=== PATIENT | female | born 1955 | race Two or more races ===

== ENCOUNTER 2024-04-17 16:02 | Inpatient (IN) | payer OTHER, BC ==
[~2024-04-17] VITALS: Ht 160 cm; Wt 63.5 kg
[~2024-04-17 16:02] MED LIST: AMARANTH100 GM; PREVACID15 MG; SKELAXIN800 MG PO; ULTRACET PO
[2024-04-17] MEDS ORDERED: FELODIPINE ER2.5 MG PO (16:51)
[2024-04-17 17:50] LABS: MEAN CORPUSCULAR HGB CONC 31.6 g/dl (32.0-36.0); PLATELET COUNT 459 K/uL (150-450); RED BLOOD COUNT 3.31 M/uL (4.00-6.00); RED CELL DISTRIBUTION WIDTH 17.2 % (11.5-14.5)
[2024-04-17 17:56] LABS: MEAN CORPUSCULAR HEMOGLOBIN 21.7 pg (27.00-32.0)
[2024-04-17 17:58] LABS: HEMATOCRIT 22.9 % (36.0-45.00); HEMOGLOBIN 7.2 g/dL (12.0-15.00)
[2024-04-17] MEDS ORDERED: LEVALBUTEROL HCL 1.25 MG/3 ML SOLUTION IH SCH (19:15)
[2024-04-17] MEDS ORDERED: LEVALBUTEROL HCL 1.25 MG/3 ML SOLUTION IH ONE (20:56)
[2024-04-17] MEDS ORDERED: AZITHROMYCIN 500 MG VIAL IV SCH (22:24)
[2024-04-17] MEDS ORDERED: 0.9 % SODIUM CHLORIDE 1,000 ML IV SCH (22:30)
[2024-04-17] MEDS ORDERED: INSULIN LISPRO 1,000 UNIT/10 ML UNITS SUBCUTANEO PRN (22:30)
[2024-04-17] MEDS ORDERED: FUROsemide 20 MG/2 ML VIAL IV SCH (22:30)
[2024-04-17] MEDS ORDERED: DEXTROSE 50 % IN WATER 0.5 G/ML DISP.SYRIN IV PRN (22:30)
[2024-04-17] MEDS ORDERED: DIPHENHYDRAMINE HCL 50 MG/ML VIAL 1ML IV PRN (22:30)
[2024-04-17] MEDS ORDERED: MONTELUKAST SODIUM 10 MG TABLET PO SCH (22:32)
[2024-04-17] MEDS ORDERED: hydrALAZINE HCL 20 MG VIAL IV PRN (22:45)
[2024-04-17] MEDS ORDERED: ONDANSETRON HCL 4 MG in 0.9 % SODIUM CHLORIDE 50 ML IV PRN (22:45)
[2024-04-17] MEDS ORDERED: BENZONATATE 100 MG CAPSULE PO PRN (22:45)
[2024-04-17] MEDS ORDERED: ACETAMINOPHEN 500 MG GEL..CAP PO PRN (22:45)
[2024-04-18] MEDS ORDERED: LEVALBUTEROL HCL 1.25 MG/3 ML SOLUTION IH SCH (01:00)
[2024-04-18] MEDS ORDERED: IPRATROPIUM BROMIDE 0.5 MG/2.5 ML AMPUL.NEB IH SCH (01:00)
[2024-04-18] MEDS ORDERED: ACETAMINOPHEN 500 MG GEL..CAP PO ONE (02:54)
[2024-04-18] MEDS ORDERED: LEVALBUTEROL HCL 1.25 MG/3 ML SOLUTION IH ONE (08:23)
[2024-04-18] MEDS ORDERED: IPRATROPIUM BROMIDE 0.5 MG/2.5 ML AMPUL.NEB IH ONE (08:23)
[2024-04-18 08:50] VITALS: BP 146/64; O2SAT 98
[2024-04-18] MEDS ORDERED: INSULIN LISPRO 1,000 UNIT/10 ML UNITS SUBCUTANEO ONE (08:50)
[2024-04-18] MEDS ORDERED: CETIRIZINE HCL 5 MG/5 ML ML PO SCH (09:00)
[2024-04-18] MEDS ORDERED: PATIENTS OWN MEDICATION (MEDICAMENTO EN PISO) PO SCH (09:00)
[2024-04-18] MEDS ORDERED: PANTOPRAZOLE SODIUM 40 MG in 0.9 % SODIUM CHLORIDE 8 ML IV PUSH SCH (09:00)
[2024-04-18 09:13] LABS: URINE APPEARANCE Error; URINE BILIRRUBIN Negative (NEGATIVE); URINE BLOOD Negative; URINE COLOR Yellow; URINE GLUCOSE Negative (NEGATIVE); URINE KETONE Negative (NEGATIVE); URINE LEUKOCYTE Negative; URINE NITRATE Negative; URINE PROTEIN Negative (NEGATIVE); URINE UROBILINOGEN 0.2 E.U./dl
[2024-04-18 09:37] LABS: PLATELET COUNT 477 K/uL (150-450); RED BLOOD COUNT 3.53 M/uL (4.00-6.00); RED CELL DISTRIBUTION WIDTH 17.1 % (11.5-14.5)
[2024-04-18 09:39] LABS: HEMATOCRIT 23.9 % (36.0-45.00); MEAN CELL VOLUME 67.8 fL (80.00-100.00); MEAN CORPUSCULAR HEMOGLOBIN 21.8 pg (27.00-32.0)
[2024-04-18 09:45] LABS: HEMOGLOBIN 7.7 g/dL (12.0-15.00); LDH 195 U/L (84-246); PHOSPHOKINASE CREATININE 57 U/L (26-192)
[2024-04-18 09:47] LABS: ALBUMIN 3.3 gm/dL (3.4-5.0); BILIRUBIN TOTAL 0.27 mg/dL (0.3-1.2); CALCIUM 8.9 mg/dL (8.5-10.1); CHOL HDL RATIO 2.8 (0-5.0); CREATININE SERUM 0.72 mg/dL (0.55-1.02); GFR 80.79; GLOBULINA 3.6 G/DL (2.4-3.5); MAGNESIUM 1.8 mg/dL (1.8-2.4); POTASSIUM 4.26 mEq/L (3.5-5.1); TOTAL PROTEIN 6.9 gm/dL (6.4-8.2)
[2024-04-18 09:53] LABS: C-REACTIVE PROTEIN 2.3 MG/DL (0.00-0.29)
[2024-04-18 09:54] LABS: ERYTHROCYTE SEDIMENTATION RATE 81 mm/hr
[2024-04-18 09:58] LABS: URINE BACTERIA 1.2 uL (0.0-1933); URINE EPITHELIAL CELLS 0.7 uL (0.0-38.8); URINE RBC 0.4 uL (0.0-20.8); URINE WBC 0 uL (0.0-23.2)
[2024-04-18] MEDS ORDERED: DIPHENHYDRAMINE HCL 50 MG/ML VIAL 1ML IV SCH (10:30)
[2024-04-18 10:56] LABS: INR 1.09; PARTIAL THROMBOPLASTIN TIME 23.6 SECONDS (22.0-34.0); PROTHROMBIN TIME 11.8 SECONDS (9.0-11.5)
[2024-04-18 11:19] LABS: ABG PH 7.465 (7.35-7.45); ABG PO2 94.8 mmHg (80-100); ABG pCO2 30.3 mmHg (35-45)
[2024-04-18 11:20] LABS: BASE EXCESS -1.3 mmol/l; BICARBONATE 21.3 mmol/l (23-25); SaO2 97.8 %; Tco2 22.2 mmol/l; allen test SATISFACTORY; o2 21 %; puncture site RADIAL RIGHT
[2024-04-18 14:05] VITALS: O2SAT 100
[2024-04-18] MEDS ORDERED: INSULIN LISPRO 1,000 UNIT/10 ML UNITS SUBCUTANEO PRN (16:00)
[2024-04-18 16:15] VITALS: O2SAT 99
[2024-04-18 16:43] VITALS: BP 145/69; O2SAT 100
[2024-04-18 19:22] VITALS: O2SAT 97
[2024-04-18] MEDS ORDERED: INSULIN GLARGINE,HUM.REC.ANLOG 1,000 UNITS/10 ML UNITS SUBCUTANEO SCH (21:00)
[2024-04-19] VITALS (8 sets, daily range): BP systolic 106–140; BP diastolic 49–63; O2SAT 97–100
[2024-04-19] MEDS ORDERED: AZITHROMYCIN 500 MG VIAL IV ONE (07:55)
[2024-04-19] MEDS ORDERED: levoFLOXacin IN DEXTROSE 5 % 150 ML IV SCH (09:00)
[2024-04-19 12:23] LABS: MEAN CORPUSCULAR HGB CONC 31.9 g/dl (32.0-36.0); PLATELET COUNT 412 K/uL (150-450); RED BLOOD COUNT 3.18 M/uL (4.00-6.00); RED CELL DISTRIBUTION WIDTH 17.1 % (11.5-14.5)
[2024-04-19 12:29] LABS: MEAN CELL VOLUME 68.7 fL (80.00-100.00)
[2024-04-19 12:31] LABS: HEMATOCRIT 21.8 % (36.0-45.00)
[2024-04-19 12:34] LABS: ob POSITIVE (NEGATIVE)
[2024-04-19 12:44] LABS: CALCIUM 8.4 mg/dL (8.5-10.1); CREATININE SERUM 0.72 mg/dL (0.55-1.02); GFR 80.79; LDH 182 U/L (84-246); PHOSPHOKINASE CREATININE 46 U/L (26-192); POTASSIUM 4.15 mEq/L (3.5-5.1)
[2024-04-19] MEDS ORDERED: VANCOMYCIN HCL 1,000 MG VIAL IV SCH (17:00)
[2024-04-20] VITALS (9 sets, daily range): BP systolic 136–137; BP diastolic 57–66; O2SAT 90–100
[2024-04-21 01:15] VITALS: O2SAT 99
[2024-04-21 02:08] VITALS: BP 128/61; O2SAT 97
[2024-04-21 06:19] VITALS: O2SAT 100
[2024-04-21 08:56] VITALS: BP 150/67; O2SAT 97
[2024-04-21 09:13] VITALS: O2SAT 81
[2024-04-21 11:11] LABS: HEMATOCRIT 30.6 % (36.0-45.00); HEMOGLOBIN 9.9 g/dL (12.0-15.00); MEAN CELL VOLUME 71.3 fL (80.00-100.00); MEAN CORPUSCULAR HGB CONC 32.4 g/dl (32.0-36.0); PLATELET COUNT 412 K/uL (150-450); RED CELL DISTRIBUTION WIDTH 18.8 % (11.5-14.5)
== END 2024-04-21 15:25 | disposition home or self-care (01) | DRG 177 ==
LOC: ER 16:04 → SEC-K 23:01 → MEDI 23:01
PROVIDERS: General Practice; Student in an Organized Health Care Education/Training Program; ADMIT Internal Medicine; ATTEND Internal Medicine
PROC: BB24ZZZ Computerized Tomography (CT Scan) of Bilateral Lungs (ICD-10-PCS; principal; 2024-04-18)
PROC: 3E0F7GC Introduction of Other Therapeutic Substance into Respiratory Tract, Via Natural or Artificial Opening (ICD-10-PCS; 2024-04-18)
PROC: 4A12X4Z Monitoring of Cardiac Electrical Activity, External Approach (ICD-10-PCS; 2024-04-18)
PROC: 02HV33Z Insertion of Infusion Device into Superior Vena Cava, Percutaneous Approach (ICD-10-PCS; 2024-04-19)
PROC: 30243N1 Transfusion of Nonautologous Red Blood Cells into Central Vein, Percutaneous Approach (ICD-10-PCS; 2024-04-19)
PROC: B246ZZZ Ultrasonography of Right and Left Heart (ICD-10-PCS; 2024-04-19)
DX: J15.0 Pneumonia due to Klebsiella pneumoniae (principal); B37.1 Pulmonary candidiasis; J45.901 Unspecified asthma with (acute) exacerbation; D50.0 Iron deficiency anemia secondary to blood loss (chronic); M34.9 Systemic sclerosis, unspecified; I73.00 Raynaud's syndrome without gangrene; Z88.6 Allergy status to analgesic agent; Z88.1 Allergy status to other antibiotic agents; Z88.0 Allergy status to penicillin; Z88.2 Allergy status to sulfonamides; Z88.8 Allergy status to other drugs, medicaments and biological substances